=== PATIENT | male | born 2000 | race Two or more races ===

== ENCOUNTER 2023-08-08 09:17 | Emergency (ER) | payer MEDICAID ==
[~2023-08-08] VITALS: Ht 175.3 cm; Wt 70.0 kg
[2023-08-08 09:33] VITALS: BP 139/69; PULSE 84; RESP 18; TEMP 98.6
[2023-08-08] MEDS ORDERED: CEPHALEXIN MONOHYDRATE 500 MG CAPSULE PO ONE (11:45)
[2023-08-08] MEDS ORDERED: PERTUSS(ACELL),DIPH,TET VAC/PF 0.5 ML SYRINGE IM. ONE (11:45)
[2023-08-08] MEDS ORDERED: KETOROLAC TROMETHAMINE 60 MG/2 ML VIAL IM ONE (11:45)
[2023-08-08] MEDS ORDERED: ACETAMINOPHEN 500 MG TABLET PO ONE (11:45)
[2023-08-08] MEDS ORDERED: LIDOCAINE 1% 10 ML VIAL SQ ONE (11:45)
[2023-08-08] MEDS ORDERED: ACET-66 PO (13:30)
[2023-08-08] MEDS ORDERED: IBUP-1554 PO (13:30)
[2023-08-08] MEDS ORDERED: CEPH-558 PO (13:30)
[2023-08-08] MEDS ORDERED: DOXY-354 PO (13:30)
== END 2023-08-08 14:00 | disposition home or self-care (01) ==
LOC: EMS 09:19
DX: L02.511 Cutaneous abscess of right hand (principal)
CPT/HCPCS: 99284; 26010; 90715; 90471; 96372; J1885; J3490